=== PATIENT | female | born 2000 | race Two or more races ===

== ENCOUNTER 2024-05-27 07:28 | Emergency (ER) | payer MEDICAID, SELFPAY ==
[2024-05-27 07:37] VITALS: BP 134/86; PULSE 73; RESP 17; TEMP 36.9; O2SAT 100; BMI 18.4
--- NOTE | 2024-05-27 07:43 | PD.EDALLER ---
ED Allergic Reaction RME/HPI General Chief complaint: Allergic Reaction Stated complaint: ALLERGIC REACTION TO LIPS W/ ITCH & NUMBNESS Time Seen by Provider: 05/27/24 07:44 Source: patient Arrival date/time: 05/27/24 07:28 24-year-old female with no known medical history presents to the emergency room with a chief complaint of swelling to the lower lip x 1 hour. Mode of arrival: ambulatory Limitations: no limitations Related Data Previous Rx's ?Medication ?Instructions ?Recorded diphenhydramine HCl 25 mg capsule 25 mg PO Q6H PRN allergic reaction 09/20/22 (Benadryl) #14 caps diphenhydramine HCl 25 mg capsule 25 mg PO TID PRN allergic reaction 05/27/24 #14 caps Allergies Allergy/AdvReac Type Severity Reaction Status Date / Time wheat Allergy Severe Swelling Verified 05/27/24 07:31 of Lip/Tongue/Throat Review of Systems Review of Systems Systems Reviewed: All systems reviewed, normal except as documented Constitutional Constitutional: Reports system reviewed and no additional complaints, except as documented, Denies fatigue, Denies fever(s), Denies headache(s) and Denies weakness Eyes Eyes: Reports system reviewed and no additional complaints, except as documented, Denies blurry vision and Denies change in vision ENT Ears, Nose, Mouth, and Throat: Reports system reviewed and no additional complaints, except as documented, Denies otalgia, Denies headache(s), Reports lip swelling, Denies nasal congestion, Denies throat swelling, Denies tongue swelling and Denies vertigo Cardiovascular Cardiovascular: Reports system reviewed and no additional complaints, except as documented, Denies chest pain, Denies dyspnea and Denies dyspnea on exertion Respiratory Respiratory: Reports system reviewed and no additional complaints, except as documented, Denies chest congestion, Denies cough, Denies dyspnea, Denies dyspnea on exertion and Denies wheezing Gastrointestinal Gastrointestinal: Reports system reviewed and no additional complaints, except as documented, Denies abdominal pain, Denies cramping, Denies nausea and Denies vomiting Genitourinary Genitourinary: Reports system reviewed and no additional complaints, except as documented Musculoskeletal Musculoskeletal: Reports system reviewed and no additional complaints, except as documented and Denies back pain Integumentary/Breasts Skin/Breast: Reports system reviewed and no additional complaints, except as documented and Denies wounds Neurologic Neurologic: Reports system reviewed and no additional complaints, except as documented, Denies confusion, Denies headache(s), Denies lack of coordination, Denies vertigo and Denies weakness Psychiatric Psychiatric: Reports system reviewed and no additional complaints, except as documented, Denies anxiety, Denies confusion, Denies depression, Denies paranoia, Denies suicidal ideation and Denies tactile hallucinations Endocrine Endocrine: Reports system reviewed and no additional complaints, except as documented and Denies fatigue Hematologic/Lymphatic Hematologic/Lymphatic: Reports system reviewed and no additional complaints, except as documented and Denies lymphadenopathy Allergic/Immunologic Allergic/Immunologic: Reports system reviewed and no additional complaints, except as documented, Reports lip swelling, Denies throat swelling, Denies tongue swelling, Denies urticaria and Denies wheezing ED Exam General Limitations: Present no limitations General appearance: Present alert and in no apparent distress Head Head exam: Present atraumatic Eye Eye exam: Present normal appearance, PERRL and EOMI ENT ENT exam: Present normal exam, normal oropharynx and mucous membranes moist Neck Neck exam: Present normal inspection, full ROM and trachea midline Chest Chest inspection: Present normal inspection and symmetric chest wall rise Respiratory Respiratory exam: Present normal lung sounds bilaterally; Absent respiratory distress, wheezes, stridor, accessory muscle use or prolonged expiratory phase Cardiovascular Cardiovascular exam: Present regular rate, normal rhythm and normal heart sounds Abdominal Exam Abdominal exam: Present soft and normal bowel sounds Extremities Exam Extremities exam: Present normal inspection and full ROM Back Exam Back exam: Present normal inspection and full ROM Neurological Exam Neurological exam: Present alert, oriented X3 and CN II-XII intact Psychiatric Psychiatric exam: Present normal affect and normal mood Skin Skin exam: Present warm, dry, intact and normal color Course Quality Measures none Orders Category Date Time Status Dexamethasone Inj [Decadron Inj] Med 05/27/24 07:43 Discontinued 10 mg PO X1 ONE DiphenhydrAMINE [Benadryl] Med 05/27/24 07:43 Discontinued 25 mg PO X1 ONE Famotidine [Pepcid] Med 05/27/24 07:43 Discontinued 20 mg PO X1 ONE Vital Signs Vital signs: Vital Signs Temperature 98.4 F 05/27/24 07:37 Pulse Rate 73 05/27/24 07:37 Respiratory Rate 17 05/27/24 07:37 Blood Pressure 134/86 H 05/27/24 07:37 Pulse Oximetry (%) 100 05/27/24 07:37 Oxygen Delivery Method Room Air 05/27/24 07:37 O2 saturation 100% within normal limits Allergic Reaction MDM Narrative MDM Narrative:: 24-year-old female with no known medical history presents to the emergency room with a chief complaint of swelling to the lower lip x 1 hour. Patient is hemodynamically stable and nontoxic-appearing. There is no wheezing stridor or any abnormal breath sounds. There is no tongue swelling, difficulty swallowing or any difficulty breathing. Uvula is midline. There is no angioedema Antihistamines were given patient was reevaluated in 45 minutes with mild improvement to her symptoms. Patient was discharged and educated to follow-up with primary care provider and return to the emergency room for any evidence of worsening signs or symptoms Patient data External records reviewed:: [facility] previous records Clinical information provided by:: patient Social determinants that could affect healthcare access:: none Patient has the following chronic illnesses:: No chronic illness How is presenting disease/condition affected by chronic disease/condition?: no chronic disease Evaluation data The following diagnostics were reviewed and interpreted by me:: lab results and radiology exam(s) Lab and/or radiology exams considered but not ordered:: Labs and radiology exams considered in order Interpretation Summary: N/A Medications / Prescriptions Medications or Prescriptions considered but not ordered:: Medication given Medication administrations:: Medication Administration History Discontinued Medications Dexamethasone Sodium Phosphate (Dexamethasone Sod Phos Inj 10 Mg/Ml Vial) 10 mg PO X1 ONE Stop: 05/27/24 07:44 Last Admin: 05/27/24 08:00 Dose: 10 mg Documented By: DO Comments: po Diphenhydramine HCl (Diphenhydramine Elix 25 Mg/10 Ml Udc) 25 mg PO X1 ONE Stop: 05/27/24 07:44 Last Admin: 05/27/24 07:59 Dose: 25 mg Documented By: DO Famotidine (Famotidine 20 Mg Tablet) 20 mg PO X1 ONE Stop: 05/27/24 07:44 Last Admin: 05/27/24 07:59 Dose: 20 mg Documented By: DO Medication given Consultations Consultation(s) initiated? (list below): No Diagnosis Differential Diagnosis allergic reaction: anaphylaxis, allergic reaction, viral enanthem and urticaria Most likely diagnosis given after review of the tests above:: Allergic reaction Admission Indicated Admission indicated?: not indicated Admission Request Was there a request for admission?: No Disposition Plan Disposition Plan: Discharge Discharge Attestation Discharge Attestation: The patient and all family members were given an opportunity to ask questions and understood the discharge instructions. Discharge instructions specifically effects, indications for sooner follow up or return to the emergency department, and the expected course of current diagnosis. Patient condition: Stable Discharge Plan Plan Patient Disposition: HOME (Self Care) Disposition Comment: Stable Prescriptions/Referrals Prescriptions/Med Rec: New diphenhydramine HCl 25 mg capsule 25 mg PO TID PRN (Reason: allergic reaction) Qty: 14 0RF No Action diphenhydramine HCl [Benadryl] 25 mg capsule 25 mg PO Q6H PRN (Reason: allergic reaction) Qty: 14 0RF Problem List Clinical Impression: Allergic reaction Patient/Caregiver Discharge Instructions Education Materials: ED Medicine Reaction: Allergic Additional Instructions: Please follow-up with your primary care provider in the next 24 to 48 hours. Medication was sent to your pharmacy please pick it up and take it as indicated. For any evidence of worsening signs or symptoms please return to the emergency room immediately Print Language: Malaysian Stand Alone Forms: Sangeeta Award Info., Patient Portal Info Letter PA/CIRCULATION ANALYST Supervising Physician PA/CIRCULATION ANALYST Supervising Physician: Dr. Monroy
[2024-05-27] MEDS: DiphenhydrAMINE ELIX 25 MG/10 ML UDC PO (07:59)
[2024-05-27] MEDS: FAMOTIDINE 20 MG TABLET PO (07:59)
[2024-05-27] MEDS: DEXAMETHASONE SOD PHOS INJ 10 MG/ML VIAL PO (08:00)
== END 2024-05-27 09:15 | disposition home or self-care (01) ==
LOC: SERX 09:49
PROVIDERS: Emergency Provider Emergency Medicine
DX: R22.0 Localized swelling, mass and lump, head (principal); R20.0 Anesthesia of skin
CPT/HCPCS: 99282; J1100; A9270

== ENCOUNTER 2024-12-09 14:00 | Outpatient (CLI) | payer MEDICAID, SELFPAY ==
[2024-12-09] VITALS (7 sets, daily range): BP systolic 95–136; BP diastolic 52–61; PULSE 93–116; RESP 16–98; TEMP 37.1; BMI 20.5
== END 2024-12-09 15:30 | disposition home or self-care (01) ==
LOC: S4S1 14:01 → S4SX 14:01
PROVIDERS: Referring Provider Obstetrics & Gynecology; Visit Provider Obstetrics & Gynecology
DX: O36.8190 Decreased fetal movements, unspecified trimester, not applicable or unspecified (principal); Z3A.00 Weeks of gestation of pregnancy not specified
CPT/HCPCS: 59025

== ENCOUNTER 2025-02-17 22:30 | Observation (INO) | payer MEDICAID, SELFPAY ==
[2025-02-17] VITALS (11 sets, daily range): BP systolic 118; BP diastolic 66; PULSE 74–98; RESP 16–99; TEMP 37.1; O2SAT 98–100; BMI 22.8
[2025-02-17 23:56] LABS: ROM Kit Exp Date# 04/11/28; ROM Kit Lot # 58106258; ROM Swab Mixed By: MDT; Rupture of Fetal Membranes Negative (Negative); Swb Mxed in Solvent 1 min? Yes
== END 2025-02-18 00:18 | disposition home or self-care (01) ==
PROVIDERS: Admitting Provider Specialist; Visit Provider Specialist
DX: O47.1 False labor at or after 37 completed weeks of gestation (principal); Z3A.38 38 weeks gestation of pregnancy
CPT/HCPCS: 59025; 59899; 84112

== ENCOUNTER 2025-02-23 07:17 | Inpatient (IN) | payer MEDICAID, SELFPAY ==
[2025-02-23] VITALS (122 sets, daily range): BP systolic 109–145; BP diastolic 56–81; PULSE 71–233; RESP 18; TEMP 36.6–37.1; O2SAT 88–100; BMI 23.4
[2025-02-23] MEDS: RINGERS LACTATED 1000 ML 1,000 ML 100 ML IV ×3 (08:26→22:04)
--- NOTE | 2025-02-23 08:55 | PD.LDPN ---
Documentation for date of: 02/23/25 OB Labor Progress Note Pelvic Exam Dilation (cm): 1.5 Effacement (%): 80 station: -2 Amniotic membrane status: Intact Status status: Category l Assessment and Plan Comments: Cervical Ripening with Cervidil
[2025-02-23 09:10] LABS: Basophils # (Auto) 0.1 Thou/mm3 (0.0-0.2); Basophils % (Auto) 1 % (0-2.5); Eosinophils # (Auto) 0.1 Thou/mm3 (0.0-0.5); Eosinophils % (Auto) 1 % (0-10); Hematocrit 37.0 % (36.0-46.0); Hemoglobin 12.5 g/dL (12.0-16.0); Immature Granulocytes Auto 0.12 Thou/mm3 (0.00-0.00); Lymphocytes # (Auto) 1.3 Thou/mm3 (1.0-4.8); Lymphocytes % (Auto) 16 % (10-50); Mean Corpuscular HGB Conc 33.8 g/dl (31.0-37.0); Mean Corpuscular Hemoglobin 28.0 pg (25.0-35.0); Mean Corpuscular Volume 83 fL (80-100); Monocytes # (Auto) 0.7 Thou/mm3 (0.0-0.8); Monocytes % (Auto) 9 % (0-12); Neutrophils # (Auto) 6.2 Thou/mm3 (1.8-7.7); Neutrophils % (Auto) 73 % (37-80); Nucleated Red Blood Cell # 0.00 Thou/mm3 (0.00-0.00); Nucleated Red Blood Cell % 0 /100 WBC (0); Platelet Count 221 Thou/mm3 (140-440); RDW Standard Deviation 48.1 fL (36.4-46.3); Red Blood Count 4.46 Miln/mm3 (4.00-5.20); White Blood Count 8.5 Thou/mm3 (3.6-11.0)
[2025-02-23 09:50] LABS: Syphilis Nonreactive (Nonreactive)
--- NOTE | 2025-02-23 11:37 | PD.LDHP ---
Documentation for date of: 02/23/25 OB Labor/Induct. HPI History of Present Illness : 1 Term pregnancies: 0 pregnancies: 0 Living children: 0 History of Abortions: Spontaneous and Elective: 0 History of sections: No History of : No PAT: 02/27/25 History of present illness: H and P dictated in Nuance on STAT line #9: [id number] Labs Labs: Negative: RPR, Hepatitis B, Rubella Titre, HIV, Chlamydia, Gonorrhea and Group Beta Strep and Unknown: Herpes Type 1, Herpes Type 2 and Covid-19 Past Medical History Surgical History SURGICAL: Negative Section Meds Home Medications and Allergies Home Medications ?Medication ?Instructions ?Recorded ?Confirmed ?Type vits no.129-ferrous fum 1 tab PO DAILY 02/17/25 02/17/25 History 27 mg iron-folic acid 800 mcg tablet ( One Daily) Allergies Allergy/AdvReac Type Severity Reaction Status Date / Time wheat Allergy Severe Swelling Verified 02/17/25 22:51 of Lip/Tongue/Throat OB Exam Physical Exam Vital signs: Pulse BP Pulse Ox 71 114/56 L 99 02/23/25 09:59 02/23/25 09:59 02/23/25 10:49 OB Results Labs 02/23/25 08:15 Labs: Short CBC 02/23/25 Range/Units 08:15 WBC 8.5 (3.6-11.0) Thou/mm3 Hgb 12.5 (12.0-16.0) g/dL Hct 37.0 (36.0-46.0) % Plt Count 221 (140-440) Thou/mm3
--- NOTE | 2025-02-23 15:05 | ESHP_ITS ---
RE: ANNA VASQUEZ : 2000 DATE OF ADMISSION: 02/23/2025 HISTORY OF PRESENT ILLNESS: This is a 25-year-old 1 para 0 with a due date of 02/27 with intrauterine at 39 weeks and 2 days who presents for induction of labor borderline small for gestational age. The patient underwent a maternal medicine ultrasound on 02/09 showing overall growth at the 11th percentile with abdominal circumference at the 13th percentile. Maternal medicine recommended delivery at 39 weeks. She denies any leaking or bleeding. She reports normal movement. She has occasional contractions. ALLERGIES: NO KNOWN DRUG ALLERGIES. MEDICATIONS: 1. multivitamin 1 p.o. daily. 2. Ferrous sulfate 325 mg 1 p.o. b.i.d. 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 FAMILY HISTORY: Denies. SOCIAL HISTORY: She denies any alcohol, drug use or smoking. PAST SURGICAL HISTORY: Denies. REVIEW OF SYSTEMS: Denies any headache, change of vision, or right upper quadrant pain. She denies any facial or upper extremity swelling. She denies any chest pain, palpitations, cough, fever, flank pain or lower extremity pain. PHYSICAL EXAMINATION: VITAL SIGNS: Blood pressure 127/60, heart rate 88, respiration 18, and temperature is 98.6. HEENT: Oropharynx and sclerae are clear. LUNGS: Clear to auscultation bilaterally. HEART: Regular rate and rhythm. ABDOMEN: Gravid, consistent with estimated weight 6 pounds. PELVIC: See RN notes. EXTREMITIES: Nontender. SKIN: No gross rashes or lesions. NEUROLOGIC: No focal deficit. ASSESSMENT: Intrauterine at 39 weeks and 3 days, borderline small for gestational age. Recommendation for induction of labor per M. PLAN: Cervidil for cervical ripening followed by Pitocin as needed for induction of labor. I discussed with the patient, the nature of her condition, the recommended treatment plan. All questions answered. She is aware of the risk of operative vaginal delivery and delivery and agrees with these modes of delivery if indicated. DT: 11:36:34 TT: 12:24:00 Ref: [id number] - TID: [id number]
[2025-02-24] VITALS (392 sets, daily range): BP systolic 86–131; BP diastolic 49–86; PULSE 71–123; RESP 14–20; TEMP 36.6–37.4; O2SAT 89–100
[2025-02-24] MEDS: RINGERS LACTATED 1000 ML 1,000 ML 100 ML IV ×3 (03:02→19:59)
--- NOTE | 2025-02-24 06:23 | PD.LDPN ---
Documentation for date of: 02/24/25 OB Labor Progress Note Pelvic Exam Dilation (cm): 2 Effacement (%): 90 station: -2 Amniotic membrane status: Intact Contractions Monitor mode: External Contraction frequency: 5 Contraction intensity: Moderate Status status: Category l Assessment and Plan Comments: Augment with Pitocin History of Present Illness HPI H and P dictated in Nuance on STAT line #9: [id number]
[2025-02-24] MEDS: OXYTOCIN in NS 30 units 30 UNIT/500 ML BAG IV (12:02)
--- NOTE | 2025-02-24 18:11 | PD.LDPN ---
Documentation for date of: 02/24/25 OB Labor Progress Note Pain Control Comments: Epidural Pelvic Exam Dilation (cm): 3 Effacement (%): 80 station: -1 Amniotic membrane status: Ruptured Contractions Monitor mode: External Contraction frequency: 1-4 Contraction intensity: Mild Status status: Category l Assessment and Plan Comments: Inadequate contraction augment with Pitocin History of Present Illness HPI H and P dictated in Nuance on STAT line #9: [id number]
[2025-02-25] VITALS (118 sets, daily range): BP systolic 106–196; BP diastolic 55–117; PULSE 80–158; RESP 16–20; TEMP 36.6–37.3; O2SAT 78–100
[2025-02-25] MEDS: OXYTOCIN in NS 20 units 20 UNIT/1,000 ML BAG 125 UNIT IV (02:37)
[2025-02-25] MEDS: METHYLERGONOVINE INJ 0.2 MG/ML VIAL IM (02:57)
--- NOTE | 2025-02-25 03:11 | ESDS_ITS ---
DS: Providers Provider Date of admission: 02/23/25 07:17 Primary care physician: Physician No Primary/Family Admitting Provider: Vipul Norton MD Attending Provider on Admission: Vipul Norton MD Attending Provider on DC: Vipul Norton MD Discharging Provider: Vipul Norton MD DS: Diagnosis Problem List Completed Was Problem List Reviewed/Reconciled?: Yes Summary/Hosp Course Brief History: H and P dictated in Nuance on STAT line #9: [id number] Peripartum Data Delivery Method: Normal Vaginal Delivery complications: uterine atony [place] 1: Gender: Male Time Spent with Patient Time attestation: Total time spent providing and/or coordinating discharge services: Exam Vital Signs Temp Pulse Resp BP Pulse Ox O2 Del Method 98.5 F 96 16 115/55 L 99 Room Air 02/25/25 00:00 02/25/25 03:09 02/25/25 00:00 02/25/25 03:09 02/25/25 03:10 02/24/25 16:30 Discharge Plan Plan Patient Disposition: HOME (Self Care) Patient condition on transfer: Stable Prescriptions/Referrals Prescriptions/Med Rec: New ibuprofen 600 mg tablet 600 mg PO Q6H PRN (Reason: pain) Qty: 30 0RF Continued One Daily 27 mg iron- 800 mcg tablet 1 tab PO DAILY Patient Comments: Take 1 tablet by mouth once a day Referrals: No Primary/Family,Physician [Primary Care Provider] Patient/Caregiver Discharge Instructions Discharge Activity: activity as tolerated Other Discharge Activity Instructions:: Follow up office 6 week. Education Materials: After a Vaginal , Laying Your Baby Down to Sleep Print Language: Kazakh Stand Alone Forms: Sangeeta Award Info., Patient Portal Info Letter Discharge Order Discharge Orders: Discharge (Routine); Ordered 02/26/25 Ordered By: Vipul Norton Planned Discharge Date 02/26/25
[2025-02-25] MEDS: LIDOCAINE HCL 1% 20 ML VIAL INFL (03:20)
[2025-02-25] MEDS: IBUPROFEN TAB 400 MG TABLET 800 MG PO (03:38)
[2025-02-25 09:37] LABS: Basophils # (Auto) 0.0 Thou/mm3 (0.0-0.2); Basophils % (Auto) 0 % (0-2.5); Eosinophils # (Auto) 0.0 Thou/mm3 (0.0-0.5); Eosinophils % (Auto) 0 % (0-10); Hematocrit 36.6 % (36.0-46.0); Hemoglobin 12.4 g/dL (12.0-16.0); Immature Granulocytes Auto 0.13 Thou/mm3 (0.00-0.00); Lymphocytes # (Auto) 1.4 Thou/mm3 (1.0-4.8); Lymphocytes % (Auto) 7 % (10-50); Mean Corpuscular HGB Conc 33.9 g/dl (31.0-37.0); Mean Corpuscular Hemoglobin 28.4 pg (25.0-35.0); Mean Corpuscular Volume 84 fL (80-100); Monocytes # (Auto) 1.5 Thou/mm3 (0.0-0.8); Monocytes % (Auto) 8 % (0-12); Neutrophils # (Auto) 16.8 Thou/mm3 (1.8-7.7); Neutrophils % (Auto) 84 % (37-80); Nucleated Red Blood Cell # 0.00 Thou/mm3 (0.00-0.00); Nucleated Red Blood Cell % 0 /100 WBC (0); Platelet Count 205 Thou/mm3 (140-440); RDW Standard Deviation 48.8 fL (36.4-46.3); Red Blood Count 4.37 Miln/mm3 (4.00-5.20); White Blood Count 19.9 Thou/mm3 (3.6-11.0)
[2025-02-25] MEDS: DOCUSATE SOD 100 MG CAPSULE PO (16:00)
[2025-02-25] MEDS: Milk Of Magnesia Susp 30 ML UDC PO (16:01)
--- NOTE | 2025-02-25 17:49 | PC.NURSE ---
1011: Call returned to Dr. Norton, [facility] nursing order to remove vaginal packing. RN will remove and call Dr. Norton back
--- NOTE | 2025-02-25 17:51 | PC.NURSE ---
1028: Call made to regarding removal of vaginal packing, fundus firm, 2 below Umbilicus, no bleeding.
--- NOTE | 2025-02-25 17:54 | PC.NURSE ---
1514: Call made to Dr. Norton regarding pt request for colace and milk of mag. Pt reports need to pass Bowel movement, but scared due to lacerations, does not want to strain. Orders received for colace and milk of mag.
[2025-02-26] VITALS: BP 101/62; PULSE 74; RESP 16; TEMP 36.9; O2SAT 99
[2025-02-26] MEDS: IBUPROFEN TAB 400 MG TABLET 800 MG PO (03:49)
[2025-02-26 04:00] VITALS: BP 108/68; PULSE 70; RESP 18; TEMP 36.8; O2SAT 98
[2025-02-26 06:20] LABS: Basophils # (Auto) 0.1 Thou/mm3 (0.0-0.2); Basophils % (Auto) 0 % (0-2.5); Eosinophils # (Auto) 0.0 Thou/mm3 (0.0-0.5); Eosinophils % (Auto) 0 % (0-10); Hematocrit 34.6 % (36.0-46.0); Hemoglobin 11.5 g/dL (12.0-16.0); Immature Granulocytes Auto 0.11 Thou/mm3 (0.00-0.00); Lymphocytes # (Auto) 2.3 Thou/mm3 (1.0-4.8); Lymphocytes % (Auto) 15 % (10-50); Mean Corpuscular HGB Conc 33.2 g/dl (31.0-37.0); Mean Corpuscular Hemoglobin 27.8 pg (25.0-35.0); Mean Corpuscular Volume 84 fL (80-100); Monocytes # (Auto) 1.5 Thou/mm3 (0.0-0.8); Monocytes % (Auto) 10 % (0-12); Neutrophils # (Auto) 10.9 Thou/mm3 (1.8-7.7); Neutrophils % (Auto) 73 % (37-80); Nucleated Red Blood Cell # 0.00 Thou/mm3 (0.00-0.00); Nucleated Red Blood Cell % 0 /100 WBC (0); Platelet Count 210 Thou/mm3 (140-440); RDW Standard Deviation 50.0 fL (36.4-46.3); Red Blood Count 4.13 Miln/mm3 (4.00-5.20); White Blood Count 14.9 Thou/mm3 (3.6-11.0)
[2025-02-26 08:30] VITALS: BP 100/61; PULSE 68; RESP 18; TEMP 36.5; O2SAT 98
--- NOTE | 2025-02-26 08:42 | PD.LDPPPRG ---
Subjective Subjective Interval history: Patient denies any primary complaint Exam Vital Signs Temp Pulse Resp BP Pulse Ox O2 Del Method 98.2 F 70 18 108/68 98 Room Air 02/26/25 04:00 02/26/25 04:00 02/26/25 04:00 02/26/25 04:00 02/26/25 04:00 02/26/25 04:00 Routine Respiratory Exam Comments: Clear to auscultation bilaterally Routine Cardiovascular Exam Comments: Regular rate and rhythm Routine Abdominal Exam Comments: Fundus is firm nontender nondistended Routine Extremities Exam Comments: Nontender Objective Labs 02/26/25 05:20 Labs: Laboratory Results - last 24 hr 02/25/25 02/26/25 09:10 05:20 WBC 19.9 H D 14.9 H D RBC 4.37 4.13 Hgb 12.4 11.5 L Hct 36.6 34.6 L MCV 84 84 MCH 28.4 27.8 MCHC 33.9 33.2 RDW Std Deviation 48.8 H 50.0 H Plt Count 205 210 Neut % (Auto) 84 H 73 Lymph % (Auto) 7 L 15 [place] % (Auto) 8 10 Eos % (Auto) 0 0 Baso % (Auto) 0 0 Neut # (Auto) 16.8 H 10.9 H Lymph # (Auto) 1.4 2.3 [place] # (Auto) 1.5 H 1.5 H Eos # (Auto) 0.0 0.0 Baso # (Auto) 0.0 0.1 Immature Gran # (Auto) 0.13 H 0.11 H Absolute Nucleated RBC 0.00 0.00 Immature Gran % 1 H 1 H Nucleated RBC % 0 0 Impressions Impression: day #1 status post spontaneous vaginal delivery Discharge home when baby is cleared In the meantime support and care Follow-up in the office in 6 weeks Assessment & Plan Time Spent With Patient Time: Total time spent is greater than 50% in coordination of care (as documented) at patient's floor/unit and/or counseling patient:
--- NOTE | 2025-02-26 12:22 | PC.CC ---
FOOD COOKING MACHINE OPERATOR, Ginny, met with patient [id number] to do initial assessment due to scoring 11 on her post depression. FOOD COOKING MACHINE OPERATOR introduced herself, role in the agency, reason for visit, and discussed limits of confidentiality. Patient appeared alert and oriented to self, time, place, and situation. Patient appears stated age. Patient made good eye contact. Patient?s attitude appeared pleasant and cooperative. Patient?s behavior appeared ordinary. Patient?s mood appears ordinary. No signs of delusions or hallucinations. This is 25-year-old, , single female who presented to the hospital to deliver her son, Yaritza. Patient was able to verify her address and phone number. Patient reported that she resides at home with her parents. Patient reported that the father of her child, Cliff Dash ([phone]) will be involved with care. Patient denies any history or current domestic violence. Patient denied any substance use. Patient denies any history or current mental health illnesses. She denies receiving any outpatient mental health services. Patient denies any history of suicide attempts, 5150 holds. Patient reported that yesterday, she felt a little sad due to feeling ill from her back and current body image. Patient reported that today, she feels happier. Patient denied any HI, SI. Patient reported that her mother, Mary and boyfriend, Cliff will be with her to provide support. When medically clear, patient will return home. Patient declined needing transportation. Patient declined any community resources.
[2025-02-26 12:30] VITALS: BP 109/67; PULSE 73; RESP 18; TEMP 36.9; O2SAT 98
== END 2025-02-26 15:30 | disposition home or self-care (01) | DRG 560 ==
LOC: S4SX 02-25 04:52 → S4NX 02-25 20:52
PROVIDERS: Admitting Provider Specialist; Referring Provider Specialist; Visit Provider Specialist
DX: O36.5930 Maternal care for other known or suspected poor fetal growth, third trimester, not applicable or unspecified (principal); Z37.0 Single live birth; O62.2 Other uterine inertia; Z3A.39 39 weeks gestation of pregnancy
CPT/HCPCS: 36415; 85025; 86780; 86850; 86900; 86901; J2210; J2590; J2795; J3010; J3490; J7120; S0191; A9270